=== PATIENT | female | born 1960 | race Two or more races ===

== ENCOUNTER 2019-10-12 20:11 | Emergency (ER) | payer MEDICAID, OTHER ==
[~2019-10-12] VITALS: Ht 162.6 cm; Wt 89.8 kg
[2019-10-13 01:39] VITALS: BP 136/70
== END 2019-10-13 03:09 | disposition home or self-care (01) ==
LOC: ER 20:11
DX: S39.011A Strain of muscle, fascia and tendon of abdomen, initial encounter (principal); M19.90 Unspecified osteoarthritis, unspecified site; F17.210 Nicotine dependence, cigarettes, uncomplicated; X58.XXXA Exposure to other specified factors, initial encounter; Y93.89 Activity, other specified; Y92.89 Other specified places as the place of occurrence of the external cause; Y99.8 Other external cause status
CPT/HCPCS: 74176